=== PATIENT | male | born 2000 | race Caucasian/White ===

== ENCOUNTER 2021-04-12 19:30 | Emergency (ER) | payer OTHER ==
[2021-04-12 19:41] VITALS: TEMP 98.7
[2021-04-12] MEDS ORDERED: SODIUM CHLORIDE 0.9% 1,000 ML IV STA (19:50)
--- NOTE | 2021-04-12 20:10 | ED ---
Abdominal Pain HPI - General Chief Complaint: Abdominal Pain Stated Complaint: Abd Pain Time Seen by Provider: 04/12/21 19:44 Source: patient Mode of arrival: ambulatory Limitations: no limitations - History of Present Illness Initial Comments: 20-year-old male presents to emergency department with a chief complaint of abdominal pain. Patient reports he has been evaluated previously for similar abdominal pain. States he has "stomach issues". His primary care was previously concern for possible peptic ulcer. Patient reports about one hour prior to arrival, he developed diffuse periumbilical pain that was sharp in nature. He did report some nausea but no vomiting or diarrhea. States the pain has since resolved and is currently on 10/26. Not postprandial pain. He denied any radiation of the pain. Denied any infectious or obstructive urinary symptoms. Denies hematuria, hematochezia or melena. Denies testicular pain, swelling, penile discharge. - Related Data Home Medications Medication Instructions Recorded Confirmed No Known Home Medications 04/12/21 04/12/21 Allergies Allergy/AdvReac Type Severity Reaction Status Date / Time No Known Allergies Allergy Verified 04/12/21 20:16 Review of Systems ROS Statement: Those systems with pertinent positive or pertinent negative responses have been documented in the HPI. ROS Other: All systems not noted in ROS Statement are negative. Past Medical History Past Medical History: No Reported History History of Any Multi-Drug Resistant Organisms: None Reported Past Surgical History: No Surgical Hx Reported Past Psychological History: No Psychological Hx Reported Smoking Status: Current every day smoker Past Alcohol Use History: None Reported Past Drug Use History: None Reported General Exam Limitations: no limitations General appearance: alert, in no apparent distress Head exam: Present: atraumatic, normocephalic, normal inspection Eye exam: Present: normal appearance, PERRL, EOMI Pupils: Present: normal accommodation ENT exam: Present: normal exam, normal oropharynx, mucous membranes moist Neck exam: Present: normal inspection, full ROM. Absent: tenderness Respiratory exam: Present: normal lung sounds bilaterally. Absent: respiratory distress, wheezes, rales, rhonchi, stridor, chest wall tenderness, accessory muscle use Cardiovascular Exam: Present: regular rate, normal rhythm, normal heart sounds. Absent: systolic murmur, diastolic murmur GI/Abdominal exam: Present: soft. Absent: distended, tenderness, guarding, rebound Extremities exam: Present: normal inspection, full ROM, normal capillary refill. Absent: tenderness, pedal edema, joint swelling Back exam: Present: normal inspection, full ROM. Absent: tenderness, CVA tenderness (R), CVA tenderness (L), muscle spasm, paraspinal tenderness, vertebral tenderness Neurological exam: Present: alert, oriented X3, normal gait Psychiatric exam: Present: normal affect, normal mood Skin exam: Present: warm, dry, intact, normal color Course Vital Signs 04/12/21 19:38 Temperature 98.7 F Pulse Rate 105 H Respiratory 20 Rate Blood Pressure 127/83 Medical Decision Making - Medical Decision Making 20-year-old male presents to emergency department with a chief complaint of abd ominal pain. Physical examination is unremarkable. Patient is symptomatically at this time. He was only given IV fluids. CBC CMP and UA is unremarkable. Advised the patient to follow with a GI doctor. Strict return parameters were thoroughly discussed the patient was upsetting agreeable. Case discussed with Dr. Guerra. - Lab Data Result diagrams: 04/12/21 20:05 04/12/21 20:05 Lab Results 04/12/21 04/12/21 04/12/21 Range/Units 20:05 20:05 20:05 WBC 10.7 H (3.8-10.6) k/uL RBC 5.53 (4.30-5.90) m/uL Hgb 17.3 (13.0-17.5) gm/dL Hct 49.1 (39.0-53.0) % MCV 88.7 (80.0-100.0) fL MCH 31.2 (25.0-35.0) pg MCHC 35.2 (31.0-37.0) g/dL RDW 11.7 (11.5-15.5) % Plt Count 285 (150-450) k/uL MPV 7.0 Neutrophils % 78 % Lymphocytes % 14 % Monocytes % 6 % Eosinophils % 1 % Basophils % 1 % Neutrophils # 8.3 H (1.3-7.7) k/uL Lymphocytes # 1.5 (1.0-4.8) k/uL Monocytes # 0.6 (0-1.0) k/uL Eosinophils # 0.1 (0-0.7) k/uL Basophils # 0.1 (0-0.2) k/uL Sodium 139 (137-145) mmol/L Potassium 4.4 (3.5-5.1) mmol/L Chloride 105 (98-107) mmol/L Carbon Dioxide 26 (22-30) mmol/L Anion Gap 8 mmol/L BUN 13 (9-20) mg/dL Creatinine 0.69 (0.66-1.25) mg/dL Est GFR (CKD-EPI)AfAm >90 (>60 ml/min/1.73 sqM) Est GFR (CKD-EPI)NonAf >90 (>60 ml/min/1.73 sqM) Glucose 115 H (74-99) mg/dL Calcium 10.0 (8.4-10.2) mg/dL Total Bilirubin 1.0 (0.2-1.3) mg/dL AST 34 (17-59) U/L ALT 42 (4-49) U/L Alkaline Phosphatase 83 (38-126) U/L Total Protein 7.7 (6.3-8.2) g/dL Albumin 4.9 (3.5-5.0) g/dL Lipase 139 (23-300) U/L Urine Color Light Yellow Urine Appearance Clear (Clear) Urine pH 7.5 (5.0-8.0) Ur Specific [place]ley 1.010 (1.001-1.035) Urine Protein Negative (Negative) Urine Glucose (UA) Negative (Negative) Urine Ketones Negative (Negative) Urine Blood Negative (Negative) Urine Nitrite Negative (Negative) Urine Bilirubin Negative (Negative) Urine Urobilinogen <2.0 (<2.0) mg/dL Ur Leukocyte Esterase Negative (Negative) Disposition Clinical Impression: Abdominal pain Disposition: HOME SELF-CARE Condition: Stable Instructions (If sedation given, give patient instructions): Abdominal Pain (ED) Additional Instructions: Please return to the Emergency Department if symptoms worsen or any other concerns. Follow up with a GI doctor. Is patient prescribed a controlled substance at d/c from ED?: No Referrals: Lenny Barry MD [Primary Care Provider] - 1-2 days Erick Falk MD [STAFF PHYSICIAN] - 1-2 days Time of Disposition: 21:09
[2021-04-12 20:16] LABS: Basophils # (A) 0.1 k/uL (0-0.2); Basophils % (A) 1 %; Eosinophils # (A) 0.1 k/uL (0-0.7); Eosinophils % (A) 1 %; HCT 49.1 % (39.0-53.0); HGB 17.3 gm/dL (13.0-17.5); Lymphocytes # (A) 1.5 k/uL (1.0-4.8); Lymphocytes % (A) 14 %; MCH 31.2 pg (25.0-35.0); MCHC 35.2 g/dL (31.0-37.0); MCV 88.7 fL (80.0-100.0); Monocytes # (A) 0.6 k/uL (0-1.0); Monocytes % (A) 6 %; Neutrophils # (A) 8.3 k/uL (1.3-7.7); Neutrophils % (A) 78 %; Platelet Count 285 k/uL (150-450); RBC 5.53 m/uL (4.30-5.90); RDW 11.7 % (11.5-15.5); WBC 10.7 k/uL (3.8-10.6)
[2021-04-12 20:32] LABS: Appearance,Urine Clear (Clear); Bilirubin,Urine Negative (Negative); Blood,Urine Negative (Negative); Color,Urine Light Yellow; Glucose,Urine (UA) Negative (Negative); Ketones,Urine Negative (Negative); Leukocyte Esterase,Urine Negative (Negative); Nitrite,Urine Negative (Negative); PH, Urine 7.5 (5.0-8.0); Protein,Urine Negative (Negative); Urobilinogen,Urine <2.0 mg/dL (<2.0)
[2021-04-12 20:43] LABS: ALT 42 U/L (4-49); AST 34 U/L (17-59); African American GFR (CKD) >90 (>60 ml/min/1.73 sqM); Albumin 4.9 g/dL (3.5-5.0); Alkaline Phosphatase 83 U/L (38-126); Anion Gap 8 mmol/L; Blood Urea Nitrogen 13 mg/dL (9-20); Carbon Dioxide 26 mmol/L (22-30); Chloride 105 mmol/L (98-107); Glucose 115 mg/dL (74-99); Lipase 139 U/L (23-300); Non-African American GFR(CKD) >90 (>60 ml/min/1.73 sqM); Potassium 4.4 mmol/L (3.5-5.1); Sodium 139 mmol/L (137-145); Total Protein 7.7 g/dL (6.3-8.2)
[2021-04-12 21:16] VITALS: BP 118/75; PULSE 88; RESP 16
== END 2021-04-12 21:05 | disposition home or self-care (01) ==
LOC: EC 19:30
DX: R10.33 Periumbilical pain (principal); F17.200 Nicotine dependence, unspecified, uncomplicated
CPT/HCPCS: 36415; 80053; 81003; 83690; 85025; 96360; 99284

== ENCOUNTER 2022-08-22 13:38 | Emergency (ER) | payer OTHER ==
[2022-08-22 13:48] VITALS: BP 128/79; PULSE 100; RESP 20; TEMP 97.4
--- NOTE | 2022-08-22 14:14 | ED ---
Lower Extremity Injury HPI - General Chief Complaint: Extremity Injury, Lower Stated Complaint: [facility]-L foot injury Time Seen by Provider: 08/22/22 13:39 Source: patient, RN notes reviewed Mode of arrival: ambulatory Limitations: no limitations - History of Present Illness Initial Comments: Patient is a 21 year old male presenting the ER with a chief complaint of left foot pain. 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 He reports his great toe took most of the injury. He was wearing tennis shoes during the incident. He now complains of pain 8/10 when walking stating he has been walking on his heel. He denies numbness or tingling in extremity. He does not complain of much pain when elevating his foot and reports ice helps to pain. - Related Data Home Medications Medication Instructions Recorded Confirmed No Known Home Medications 04/12/21 04/12/21 Allergies Allergy/AdvReac Type Severity Reaction Status Date / Time peanut [Peanut Butter] Allergy Rash/Hives Verified 08/22/22 13:48 Review of Systems ROS Statement: Those systems with pertinent positive or pertinent negative responses have been documented in the HPI. ROS Other: All systems not noted in ROS Statement are negative. Past Medical History Past Medical History: No Reported History History of Any Multi-Drug Resistant Organisms: None Reported Past Surgical History: No Surgical Hx Reported Past Psychological History: No Psychological Hx Reported Smoking Status: Current every day smoker Past Alcohol Use History: None Reported Past Drug Use History: None Reported General Exam Limitations: no limitations General appearance: alert, in no apparent distress Respiratory exam: Present: normal lung sounds bilaterally. Absent: respiratory distress, wheezes, rales, rhonchi, stridor Cardiovascular Exam: Present: regular rate, normal rhythm, normal heart sounds, other (2+ dorsalis pedis pulse ). Absent: systolic murmur, diastolic murmur, rubs, gallop, clicks Extremities exam: Present: normal inspection, full ROM (limited right great toe flexion) Back exam: Present: normal inspection Neurological exam: Present: alert, oriented X3, CN II-XII intact Psychiatric exam: Present: normal affect, normal mood Skin exam: Present: warm, dry, intact, normal color, other (mild contusion to DIP joint right great toe ). Absent: rash Course Vital Signs 08/22/22 13:45 Temperature 97.4 F L Pulse Rate 100 Respiratory 20 Rate Blood Pressure 128/79 O2 Sat by Pulse 98 Oximetry Medical Decision Making - Medical Decision Making X-rays negative for acute fracture. Patient has left foot contusion. Patient will be discharged return parameters were discussed. Disposition Clinical Impression: Contusion of left foot Disposition: HOME SELF-CARE Condition: Stable Instructions (If sedation given, give patient instructions): Foot Contusion (ED) Additional Instructions: Please return to the Emergency Department if symptoms worsen or any other concerns. Is patient prescribed a controlled substance at d/c from ED?: No Referrals: Lenny Barry MD [Primary Care Provider] - 1-2 days Time of Disposition: 14:30
--- NOTE | 2022-08-22 14:25 | XR ---
Left foot. HISTORY: Pain following trauma. COMPARISON: None. TECHNIQUE: 3 views of the left foot were obtained. FINDINGS: There is no fracture, dislocation, intraosseous or intra-articular abnormality. Soft tissues are norm al. IMPRESSION: No significant abnormality seen.
== END 2022-08-22 14:38 | disposition home or self-care (01) ==
LOC: EC 13:38
DX: S90.32XA Contusion of left foot, initial encounter (principal); F17.200 Nicotine dependence, unspecified, uncomplicated; Z91.010 Allergy to peanuts; X58.XXXA Exposure to other specified factors, initial encounter
CPT/HCPCS: 99283